=== PATIENT | male | born 1950 | race Caucasian/White ===

== ENCOUNTER 2017-02-03 06:40 | Day surgery (SDC) | payer OTHER ==
[2017-02-02 09:02] LABS: ASPARTATE AMINO TRANSFERASE 18 U/L (15-37); BLOOD UREA NITROGEN 15 mg/dL (7-18)
[~2017-02-03] VITALS: Ht 190.5 cm; Wt 93.0 kg
[~2017-02-03 06:40] MED LIST: MULT-257 PO
[2017-02-03] MEDS ORDERED: BUPIVACAINE/PF-EPI 0.25% 1:200K ONE ×2 (06:54→08:46)
[2017-02-03] MEDS ORDERED: LACTATED RINGERS 1,000 ML IV SCH (07:11)
[2017-02-03 07:13] VITALS: BP 146/92
[2017-02-03] MEDS ORDERED: FENTANYL PF 250 MCG/5ML ONE (07:43)
[2017-02-03] MEDS ORDERED: MIDAZOLAM 1 MG/ML, 2ML ONE (07:43)
[2017-02-03] MEDS ORDERED: MEPERIDINE/PF 25MG/0.5ML IVPush PRN (08:30)
[2017-02-03] MEDS ORDERED: HYDROmorphone 1 MG/ML, 1ML IV PRN (08:30)
[2017-02-03] MEDS ORDERED: METOCLOPRAMIDE 5 MG/ML, 2ML IV PRN (08:30)
[2017-02-03] MEDS ORDERED: ROCURONIUM 10 MG/ML ONE (08:30)
[2017-02-03] MEDS ORDERED: ACETAMINOPHEN 325 MG TABLET PO PRN (08:30)
[2017-02-03] MEDS ORDERED: ONDANSETRON 2MG/ML, 2ML IVPush PRN (08:30)
[2017-02-03] MEDS ORDERED: hydrALAzine 20 MG/ML, 1ML IV PRN (08:30)
[2017-02-03] MEDS ORDERED: CEFAZOLIN 1,000 MG ONE (08:30)
[2017-02-03] MEDS ORDERED: PROMETHAZINE 25 MG/ML, 1ML IV PRN (08:30)
[2017-02-03] MEDS ORDERED: OXYcodone 5 MG/5 ML ORAL.SOL UDC PO PRN (08:30)
[2017-02-03] MEDS ORDERED: FENTANYL PF 100 MCG/2ML IV PRN (08:30)
[2017-02-03] MEDS ORDERED: GLYCOPYRROLATE 0.2MG/1ML ONE (08:30)
[2017-02-03] MEDS ORDERED: PROPOFOL 10 MG/ML, 20ML ONE (08:30)
[2017-02-03] MEDS ORDERED: KETOROLAC 30 MG/1 ML IV PRN (08:30)
[2017-02-03] MEDS ORDERED: LABETALOL 5MG/ML, 20ML IV PRN (08:30)
[2017-02-03] MEDS ORDERED: NEOSTIGMINE 1 MG/ML, 10ML ONE (08:30)
[2017-02-03] MEDS ORDERED: OXYcodone 5 MG/5 ML ORAL.SOL UDC ONE (10:57)
[2017-02-03] MEDS ORDERED: KETOROLAC 30 MG/1 ML ONE (10:58)
[2017-02-03] MEDS ORDERED: ACETAMINOPHEN 325 MG TABLET ONE (10:58)
[2017-02-03] MEDS ORDERED: ACETAMINOPHEN 650 MG/20.3 ML UDC ONE (10:58)
[2017-02-03] MEDS ORDERED: FENTANYL PF 100 MCG/2ML ONE (11:28)
[2017-02-03 12:50] LABS: HEPATITIS C VIRUS ANTIBODY Nonreactive (Nonreactive)
== END 2017-02-03 14:30 | disposition home or self-care (01) ==
LOC: OUT 06:40
PROVIDERS: ATTEND Surgery
DX: K40.20 Bilateral inguinal hernia, without obstruction or gangrene, not specified as recurrent (principal); Z72.89 Other problems related to lifestyle; F17.210 Nicotine dependence, cigarettes, uncomplicated; Z79.01 Long term (current) use of anticoagulants
CPT/HCPCS: 36415; 49505; 80053; 85025; 85610; 86803; 87340; 93005; C1781; J0690; J1885; J2250; J2704; J2710; J3010; J7120; J3490

== ENCOUNTER → 2017-07-20 | Outpatient (CLI) | payer OTHER ==
[~2017-07-20] MED LIST changes: +OMNIPAQUE 350 MG/ML, 100ML BOTTLE ONE
== END | disposition home or self-care (01) ==
LOC: CFH 08:39
PROVIDERS: ATTEND Family Medicine
DX: M50.31 Other cervical disc degeneration, high cervical region (principal); M43.12 Spondylolisthesis, cervical region
CPT/HCPCS: 70491; 82565; Q9967